=== PATIENT | male | born 1985 | race Hispanic/Latino ===

== ENCOUNTER 2021-08-16 09:49 | Emergency (ER) | payer MEDICARE ==
[2021-08-16] MEDS ORDERED: IBUPROFEN 800 MG TAB PO ONE (12:04)
--- NOTE | 2021-08-16 12:38 | XRay Report ---
CHEST 2 VIEWS INDICATION / CLINICAL INFORMATION: shortness of breath. COMPARISON: None available. FINDINGS: SUPPORT DEVICES: None. HEART / MEDIASTINUM: No significant abnormality. LUNGS / PLEURA: No significant pulmonary or pleural abnormality. No pneumothorax. ADDITIONAL FINDINGS: No significant additional findings. IMPRESSION: 1. No acute findings. Signer Name: Viktor Jung MD Signed: 08/16/2021 12:20 PM Workstation Name: [id number]
--- NOTE | 2021-08-16 12:39 | Emergency Department Report ---
ED Fever HPI - General Chief Complaint: Fever Stated Complaint: CHILLS/HIGH FEVER - History of Present Illness Initial Comments: 36-year-old male presents to the ED complaining of fever x1 day. States that he is taking Tylenol on last night for fever but today he still has a fever and has not taking any medication prior to arrival. States having body aches. Patient denies any prior medical history. patient denies any vaccination to the COVID-vaccine. Patient is alert and oriented x3. No acute distress noted .No ill appearance noted. Denies any chest pain , abdominal pain, headache or nausea vomiting at present time. Fever Severity/Quality: subjective Associated Symptoms: denies symptoms ED Review of Systems ROS: Stated complaint: CHILLS/HIGH FEVER Other details as noted in HPI Constitutional: chills, fever ENT: denies: ear pain, throat pain Respiratory: denies: cough, shortness of breath, wheezing Cardiovascular: denies: chest pain, palpitations Endocrine: no symptoms reported Gastrointestinal: denies: abdominal pain, nausea, diarrhea Genitourinary: denies: urgency, dysuria Musculoskeletal: denies: back pain, joint swelling, arthralgia Skin: denies: rash, lesions Neurological: denies: headache, weakness, paresthesias Psychiatric: denies: anxiety, depression Hematological/Lymphatic: denies: easy bleeding, easy bruising ED Past Medical Hx - Past Medical History Hx Psychiatric Treatment: Yes (anxiety, depression) - Surgical History Past Surgical History?: No - Social History Smoking Status: Never Smoker Substance Use Type: None - Medications Home Medications: Home Medications Medication Instructions Recorded Confirmed Last Taken Type Ibuprofen [Motrin] 800 mg PO Q8HR PRN 15 Days #30 08/16/21 Unknown Rx tablet ED Physical Exam - General Limitations: No Limitations General appearance: alert, in no apparent distress - Head Head exam: Present: atraumatic, normocephalic - Eye Eye exam: Present: normal appearance - ENT ENT exam: Present: mucous membranes moist - Neck Neck exam: Present: normal inspection - Respiratory Respiratory exam: Present: normal lung sounds bilaterally. Absent: respiratory distress - Cardiovascular Cardiovascular Exam: Present: regular rate, normal rhythm. Absent: systolic murmur, diastolic murmur, rubs, gallop - GI/Abdominal GI/Abdominal exam: Present: soft, normal bowel sounds - Rectal Rectal exam: Present: deferred - Extremities Exam Extremities exam: Present: normal inspection - Back Exam Back exam: Present: normal inspection - Neurological Exam Neurological exam: Present: alert, oriented X3 - Psychiatric Psychiatric exam: Present: normal affect, normal mood - Skin Skin exam: Present: warm, dry, intact, normal color. Absent: rash ED Course Vital Signs 08/16/21 08/16/21 09:53 12:10 Temperature 99.1 F 99.6 F Pulse Rate 106 H 87 Respiratory 20 20 Rate Blood Pressure 113/80 Blood Pressure 124/85 [Right] O2 Sat by Pulse 99 99 Oximetry ED Medical Decision Making - Lab Data Result diagrams: 08/16/21 12:49 08/16/21 12:49 - Medical Decision Making 36-year-old male presents to the ED complaining of fever x1 day. States that he is taking Tylenol on last night for fever but today he still has a fever and has not taking any medication prior to arrival. States having body aches. Patient denies any prior medical history. patient denies any vaccination to the COVVamo-vaccine. Patient is alert and oriented x3. No acute distress noted .No ill appearance noted. Denies any chest pain , abdominal pain, headache or nausea vomiting at present time. Physical examination unremarkable. No pertinent lab. Chest x-rays show no acute finding. Rechecked the patient is resting quietly quietly and comfortable and feeling better. I discussed the results of diagnostic study, my clinical impression and the plan for further treatment with the patient. Patient agrees with plan and discharge at this present time. All question addressed. I have given the patient instruction regarding a diagnosis ,expectation ,follow- up and return precaution. I explained to the patient that emergent condition may arise and to return to the ED for new worsen and any new persisting condition. I have explained the importance of following up with the primary care physician or referral physician listed below has instructed. The patient verbalized understanding of discharge instruction. Abnormal Lab Results 08/16/21 08/16/21 12:49 12:49 WBC 7.9 RBC 5.08 H Hgb 14.5 Hct 43.8 MCV 86 MCH 29 MCHC 33 RDW 14.2 Plt Count 151 Lymph % (Auto) 8.1 L Glenn % (Auto) 10.1 H Eos % (Auto) 0.9 Baso % (Auto) 0.8 Lymph # (Auto) 0.6 L Glenn # (Auto) 0.8 Eos # (Auto) 0.1 Baso # (Auto) 0.1 Seg Neutrophils % 80.1 H Seg Neutrophils # 6.3 Sodium 137 Potassium 4.7 Chloride 100.3 Carbon Dioxide 25 Anion Gap 16 BUN 13 Creatinine 1.0 Estimated GFR > 60 BUN/Creatinine Ratio 13 Glucose 95 Calcium 9.3 Total Bilirubin 0.70 AST 20 ALT 23 Alkaline Phosphatase 113 Total Protein 7.1 Albumin 4.7 Albumin/Globulin Ratio 2.0 Critical care attestation.: If time is entered above; I have spent that time in minutes in the direct care of this critically ill patient, excluding procedure time. ED Disposition Clinical Impression: Viral URI Disposition: HOME / SELF CARE / HOMELESS Is pt being admited?: No Does the pt Need Aspirin: No Condition: Stable Instructions: Viral Respiratory Infection Test Additional Instructions: Your symptoms appear most consistent with a nonspecific viral syndrome. However, given this current pandemic, COVID-19 is in the differential of possibilities. Despite your previous negative COVID-19 test, I do recommend repeat outpatient Covid 19 testing. In the meantime, isolate/quarantine yourself and stay away from anyone who is elderly, immunocompromised or chronically ill. You can use ibuprofen every 6-8 hours and Tylenol every 4-8 hours, using the dosing on the back of the bottle, as needed for any fever or body aches. Return to the emergency department with any worsening of your symptoms, development of chest pain or shortness of breath, or with any acute distress. Prescriptions: Ibuprofen [Motrin] 800 mg PO Q8HR PRN 15 Days #30 tablet PRN Reason: Fever >101
[2021-08-16 13:19] LABS: Basophils # (Auto) 0.1 K/mm3 (0.0-0.1); Basophils % (Auto) 0.8 % (0.0-1.8); Eosinophils # (Auto) 0.1 K/mm3 (0.0-0.4); Eosinophils % (Auto) 0.9 % (0.0-4.3); Hematocrit 43.8 % (35.5-45.6); Hemoglobin 14.5 gm/dl (11.8-15.2); Lymphocytes # (Auto) 0.6 K/mm3 (1.2-5.4); Lymphocytes % (Auto) 8.1 % (13.4-35.0); Mean Corpuscular HGB Conc 33 % (32-34); Mean Corpuscular Volume 86 fl (84-94); Monocytes # (Auto) 0.8 K/mm3 (0.0-0.8); Monocytes % (Auto) 10.1 % (0.0-7.3); Platelet Count 151 K/mm3 (140-440); Red Blood Count 5.08 M/mm3 (3.65-5.03); Red Cell Distribution Width 14.2 % (13.2-15.2)
[2021-08-16 13:40] LABS: Alanine Aminotransferase 23 units/L (7-56); Albumin 4.7 g/dL (3.9-5); BUN/Creatinine Ratio 13; Blood Urea Nitrogen 13 mg/dL (9-20); Calcium 9.3 mg/dL (8.4-10.2); Hemolysis Index 4
[2021-08-16 14:12] VITALS: BP 128/75
== END 2021-08-16 14:11 | disposition home or self-care (01) ==
LOC: ED 09:49
DX: J06.9 Acute upper respiratory infection, unspecified (principal); F41.8 Other specified anxiety disorders
CPT/HCPCS: 36415; 71046; 80053; 85025; 99283

== ENCOUNTER 2021-09-20 14:36 | Emergency (ER) | payer MEDICARE ==
[2021-09-20] MEDS ORDERED: IBUPROFEN 600 MG TAB PO ONE (21:23)
[2021-09-20] MEDS ORDERED: LIDOCAINE-MPF (1%) 10 MG/1 ML VIAL 5 ML INFILTRATI ONE (21:24)
--- NOTE | 2021-09-20 21:49 | Emergency Department Report ---
ED General Adult HPI - General Chief complaint: Skin Rash Stated complaint: SORES ON BUTTOCK Source: patient Mode of arrival: Ambulatory Limitations: No Limitations - History of Present Illness Initial comments: Patient is a 36-year-old male with a history of hypertension who presents to the ED with complaint of acute onset persistent itchy painful mild erythematous maculopapular rashes on his buttocks and his lower extremities bilaterally for the last 1 week, worse in the last 2 days. Patient said that he has not been able to sleep because of persistent pain. Patient denies dizziness, syncope, fever, chills, nausea and vomiting, diarrhea, abdominal pain, traumatic injury, change in vision or cough. MD Complaint: Multiple painful erythematous maculopapular rashes -: week(s) (1) Location: buttocks, lower extremity Radiation: non-radiation Severity scale (0 -10): 5 Quality: aching, sharp Consistency: constant Improves with: none Worsens with: none Associated Symptoms: denies other symptoms, rash. denies: confusion, chest pain, cough, diaphoresis, fever/chills, headaches, loss of appetite, malaise, nausea/vomiting, seizure, shortness of breath, syncope, weakness, other Treatments Prior to Arrival: none - Related Data Previous Rx's Medication Instructions Recorded Last Taken Type Ibuprofen [Motrin] 800 mg PO Q8HR PRN 15 Days #30 08/16/21 Unknown Rx tablet Doxycycline Hyclate 100 mg PO Q12H #20 cap 09/20/21 Unknown Rx Ibuprofen [Motrin] 600 mg PO Q8H PRN #24 tablet 09/20/21 Unknown Rx Mupirocin [Bactroban 2% OINT] 1 applic TP TID #1 tube 09/20/21 Unknown Rx Allergies Allergy/AdvReac Type Severity Reaction Status Date / Time No Known Allergies Allergy Verified 08/16/21 09:51 ED Review of Systems ROS: Stated complaint: SORES ON BUTTOCK Other details as noted in HPI Constitutional: denies: chills, fever Eyes: denies: eye pain, eye discharge, vision change ENT: denies: ear pain, throat pain Respiratory: denies: cough, shortness of breath, wheezing Cardiovascular: denies: chest pain, palpitations Endocrine: no symptoms reported Gastrointestinal: denies: abdominal pain, nausea, vomiting, diarrhea Genitourinary: denies: urgency, dysuria Musculoskeletal: denies: back pain, joint swelling, arthralgia Skin: rash (Mild erythematous maculopapular rashes diffusely), change in color. denies: lesions Neurological: denies: headache, weakness, paresthesias Psychiatric: denies: anxiety, depression Hematological/Lymphatic: denies: easy bleeding, easy bruising ED Past Medical Hx - Past Medical History Hx Hypertension: Yes Hx Psychiatric Treatment: Yes (anxiety, depression) - Social History Smoking Status: Never Smoker Substance Use Type: None - Medications Home Medications: Home Medications Medication Instructions Recorded Confirmed Last Taken Type Ibuprofen [Motrin] 800 mg PO Q8HR PRN 15 Days #30 08/16/21 Unknown Rx tablet Doxycycline Hyclate 100 mg PO Q12H #20 cap 09/20/21 Unknown Rx Ibuprofen [Motrin] 600 mg PO Q8H PRN #24 tablet 09/20/21 Unknown Rx Mupirocin [Bactroban 2% OINT] 1 applic TP TID #1 tube 09/20/21 Unknown Rx ED Physical Exam - General Limitations: No Limitations General appearance: alert, in no apparent distress - Head Head exam: Present: atraumatic, normocephalic, normal inspection - Eye Eye exam: Present: normal appearance, PERRL, EOMI Pupils: Present: normal accommodation - ENT ENT exam: Present: normal exam, normal orophraynx, mucous membranes moist, TM's normal bilaterally, normal external ear exam - Neck Neck exam: Present: normal inspection, full ROM. Absent: tenderness - Respiratory Respiratory exam: Present: normal lung sounds bilaterally. Absent: respiratory distress, wheezes, rales, rhonchi, stridor, chest wall tenderness, accessory muscle use, decreased breath sounds, prolonged expiratory - Cardiovascular Cardiovascular Exam: Present: regular rate, normal rhythm, normal heart sounds. Absent: systolic murmur, diastolic murmur, rubs, gallop - GI/Abdominal GI/Abdominal exam: Present: soft, normal bowel sounds. Absent: tenderness, guarding, hyperactive bowel sounds, hypoactive bowel sounds, organomegaly - Extremities Exam Extremities exam: Present: normal inspection, full ROM, normal capillary refill. Absent: tenderness, pedal edema, joint swelling, calf tenderness - Back Exam Back exam: Present: normal inspection, full ROM. Absent: tenderness, CVA tenderness (R), CVA tenderness (L), muscle spasm, paraspinal tenderness, vertebral tenderness, rash noted - Neurological Exam Neurological exam: Present: alert, oriented X3, CN II-XII intact, normal gait, reflexes normal - Psychiatric Psychiatric exam: Present: normal affect, normal mood - Skin Skin exam: Present: warm, dry, intact, normal color, rash (Mild erythematous maculopapular rashes on the buttocks, lower extremities and lower back), erythema ED Course Vital Signs 09/20/21 09/20/21 16:09 16:10 Temperature 98.1 F Pulse Rate 97 H Respiratory 16 Rate Blood Pressure 154/92 O2 Sat by Pulse 94 Oximetry ED Medical Decision Making - Medical Decision Making This is a 36-year-old male with a history of hypertension who presents to the ED with complaint of acute onset persistent itchy painful mild erythematous maculopapular rashes on his buttocks and his lower extremities bilaterally for the last 1 week, worse in the last 2 days. Patient said that he has not been able to sleep because of persistent pain. In the ED, patient is alert and oriented x3 and is not in any distress. Patient was treated in the ED empirically with antibiotics and discharged home on medications including antibiotics. Patient was advised to return to the ED immediately if symptoms get worse. Patient was advised to follow-up with his primary care physician in 7 to 10 days for reevaluation. - Differential Diagnosis Folliculitis; cellulitis; irritant dermatitis Critical care attestation.: If time is entered above; I have spent that time in minutes in the direct care of this critically ill patient, excluding procedure time. ED Disposition Clinical Impression: Acute folliculitis, Cellulitis of buttock Insect bite of buttock with local reaction Qualifiers: Encounter type: initial encounter Qualified Code(s): S30.860A - Insect bite (nonvenomous) of lower back and pelvis, initial encounter; W57.XXXA - Bitten or stung by nonvenomous insect and other nonvenomous arthropods, initial encounter Disposition: 01 HOME / SELF CARE / HOMELESS Is pt being admited?: No Does the pt Need Aspirin: No Condition: Stable Instructions: Cellulitis, Adult, [id number], Insect Bite, Adult, [id number] Additional Instructions: Take medication with food, drink plenty of fluids, follow-up with your primary care physician in 7 to 10 days for reevaluation. Return to the ED immediately if symptoms get worse. Prescriptions: Mupirocin [Bactroban 2% OINT] 1 applic TP TID #1 tube Doxycycline Hyclate 100 mg PO Q12H #20 cap Ibuprofen [Motrin] 600 mg PO Q8H PRN #24 tablet PRN Reason: Pain Referrals: TAYA MO MD [Primary Care Provider] - 3-5 Days Time of Disposition: 21:55 Print Language: [id number]
[2021-09-20 22:41] VITALS: BP 146/87
== END 2021-09-20 22:41 | disposition home or self-care (01) ==
LOC: ED 14:36
DX: L73.9 Follicular disorder, unspecified (principal); L03.317 Cellulitis of buttock; I10 Essential (primary) hypertension
CPT/HCPCS: 96372; 99282; J0696; J3490